=== PATIENT | male | born 1955 | race Hispanic/Latino ===

== ENCOUNTER 2021-03-27 07:54 | Emergency (ER) | payer SELFPAY ==
--- NOTE | 2021-03-27 09:57 | Emergency Department Report ---
ED General Adult HPI - General Chief complaint: High BP Stated complaint: HIGH BLOOD PRESSURE Time Seen by Provider: 03/27/21 09:54 Source: patient Mode of arrival: Ambulatory Limitations: No Limitations - History of Present Illness Initial comments: Patient presented with uncontrolled blood pressure problems as well as left upper quadrant pain. Patient states that he does have a long history of hypertension. He had previously been on lisinopril. He stopped taking it. He started taking it 2 days ago but his blood pressure still elevated. This m orning it was in the 220s over 130 range. He came in for evaluation and treatment. He has no chest pain or shortness of breath. There is no hematuria. He has no blurry vision or double vision. He denies numbness or tingling in the arms or legs. He does not eat salt. He has not been drinking much caffeine. He was concerned about his blood pressure being elevated. He also reports having left upper quadrant pain and he does not know what is going on. This been going on since October. He states it could have even been going on before that. He had been seen [facility] and was told his blood work was normal. They did x-rays and did not see anything. Patient did not know what was going on. He states that he had run some things on the computer and was concerned about pancreas problems or tumor or something else. He does admit that he has been under a lot of stress and it could be related to an ulcer. Is never been diagnosed with ulcer disease. - Related Data Previous Rx's Medication Instructions Recorded Last Taken Type Sucralfate [Carafate] 1 gm PO Q6HR #90 tablet 03/27/21 Unknown Rx hydrALAZINE [Apresoline TAB] 25 mg PO Q8HR #30 tab 03/27/21 Unknown Rx Allergies Allergy/AdvReac Type Severity Reaction Status Date / Time No Known Allergies Allergy Unverified 03/27/21 09:42 ED Review of Systems ROS: Stated complaint: HIGH BLOOD PRESSURE Other details as noted in HPI Comment: All other systems reviewed and negative Constitutional: denies: fever Eyes: denies: eye pain ENT: denies: throat pain Respiratory: denies: cough Cardiovascular: denies: chest pain Endocrine: denies: unexplained weight loss Gastrointestinal: as per HPI Genitourinary: denies: dysuria Musculoskeletal: denies: back pain Skin: denies: rash Neurological: denies: headache Hematological/Lymphatic: denies: easy bruising ED Past Medical Hx - Past Medical History Previous Medical History?: Yes Hx Hypertension: Yes Hx Diabetes: Yes (non compliance) Hx Arthritis: Yes Additional medical history: Abd pain - Surgical History Past Surgical History?: No - Family History Family history: hypertension - Social History Smoking Status: Former Smoker Substance Use Type: Alcohol, Prescribed - Medications Home Medications: Home Medications Medication Instructions Recorded Confirmed Last Taken Type Sucralfate [Carafate] 1 gm PO Q6HR #90 tablet 03/27/21 Unknown Rx hydrALAZINE [Apresoline TAB] 25 mg PO Q8HR #30 tab 03/27/21 Unknown Rx ED Physical Exam - General Limitations: No Limitations, Other (Pulse ox was noted and normal.) General appearance: alert, in no apparent distress, obese - Head Head exam: Present: atraumatic, normocephalic, normal inspection - Eye Eye exam: Present: normal appearance, EOMI. Absent: scleral icterus - ENT ENT exam: Present: normal exam, normal orophraynx, mucous membranes moist, normal external ear exam - Neck Neck exam: Present: normal inspection. Absent: meningismus - Respiratory Respiratory exam: Present: normal lung sounds bilaterally. Absent: respiratory distress - Cardiovascular Cardiovascular Exam: Present: regular rate, normal rhythm - GI/Abdominal GI/Abdominal exam: Present: soft. Absent: distended, tenderness, pulsatile mass - Extremities Exam Extremities exam: Present: normal capillary refill - Back Exam Back exam: Absent: CVA tenderness (R), CVA tenderness (L) - Neurological Exam Neurological exam: Present: alert, oriented X3, normal gait - Psychiatric Psychiatric exam: Present: normal affect, normal mood - Skin Skin exam: Present: warm, dry ED Course Vital Signs 03/27/21 09:42 Temperature 97.7 F Pulse Rate 68 Respiratory 20 Rate Blood Pressure 193/94 O2 Sat by Pulse 97 Oximetry - Reevaluation(s) Reevaluation #1: 03/27/21 09:57 Patient was discharged. ED Medical Decision Making - Medical Decision Making Patient presented with subacute to chronic upper abdominal pain. He certainly has no peritoneal findings. There is no pulsatile mass. I do not believe CT or further imaging is necessary emergently. He certainly may benefit from endoscopy given his questionable history of ulcer disease. There is no vomiting to suggest acute pancreatitis. He has no exertional component. I do not believe this is referred pain from ACS. He did have elevated blood pressure but has no symptomatology of endorgan damage. He was treated symptomatically and referred for outpatient evaluation. Critical care attestation.: If time is entered above; I have spent that time in minutes in the direct care of this critically ill patient, excluding procedure time. ED Disposition Clinical Impression: Uncontrolled hypertension, Chronic LUQ pain Disposition: HOME / SELF CARE / HOMELESS Is pt being admited?: No Does the pt Need Aspirin: No Condition: Stable Instructions: Abdominal Pain, Adult, [id number], Preventing Hypertension, Hypertension (ED) Additional Instructions: Have a bland diet. Drink plenty water. Return for problems. [facility] for [facility]. Continue home medication. Prescriptions: hydrALAZINE [Apresoline TAB] 25 mg PO Q8HR #30 tab Sucralfate [Carafate] 1 gm PO Q6HR #90 tablet Referrals: PRIMARY CARE, [Referring] - 3-5 Days
[2021-03-27 10:32] VITALS: BP 187/101
== END 2021-03-27 10:26 | disposition home or self-care (01) ==
LOC: ED 07:54
DX: I10 Essential (primary) hypertension (principal); G89.29 Other chronic pain; R10.12 Left upper quadrant pain; E11.9 Type 2 diabetes mellitus without complications; M19.90 Unspecified osteoarthritis, unspecified site; Z87.891 Personal history of nicotine dependence; Z79.899 Other long term (current) drug therapy
CPT/HCPCS: 99282

== ENCOUNTER 2021-03-28 15:20 | Emergency (ER) | payer OTHER ==
[2021-03-28 15:47] VITALS: BP 157/81
--- NOTE | 2021-03-28 15:47 | Emergency Department Report ---
ED General Adult HPI - General Chief complaint: High BP Stated complaint: HIGH BLOOD PRESSURE Time Seen by Provider: 03/28/21 15:45 Source: patient Mode of arrival: Ambulatory Limitations: No Limitations - History of Present Illness Initial comments: 65-year-old male patient with history of diabetes and hypertension presents with complaints of continued elevated blood pressure today. Patient was seen here yesterday for elevated blood pressure and left upper quadrant pain. Hydralazine 25 mg was added to his current regimen of lisinopril 20 mg and he was discharged home. Patient states he has taken 1 dose of the hydralazine this morning. He reports his home blood pressure was around 200/140. He denies any headache, dizziness, chest pain, shortness of breath, numbness/tingling/weakness in his limbs, dizziness, difficulty with speech/ambulation. No history of strokes per patient. He states he is otherwise feeling well. Severity scale (0 -10): 0 - Related Data Previous Rx's Medication Instructions Recorded Last Taken Type Sucralfate [Carafate] 1 gm PO Q6HR #90 tablet 03/27/21 Unknown Rx hydrALAZINE [Apresoline TAB] 25 mg PO Q8HR #30 tab 03/27/21 Unknown Rx Allergies Allergy/AdvReac Type Severity Reaction Status Date / Time No Known Allergies Allergy Unverified 03/27/21 09:42 ED Review of Systems ROS: Stated complaint: HIGH BLOOD PRESSURE Other details as noted in HPI Constitutional: denies: diaphoresis, fever, malaise Eyes: denies: vision change Respiratory: denies: cough, shortness of breath Cardiovascular: denies: chest pain Gastrointestinal: denies: abdominal pain, nausea, vomiting Musculoskeletal: denies: back pain Neurological: denies: headache, numbness, paresthesias, confusion, abnormal gait ED Past Medical Hx - Past Medical History Previous Medical History?: Yes Hx Hypertension: Yes Hx Diabetes: Yes (non compliance) Hx Arthritis: Yes Additional medical history: Abd pain , Obesity - Surgical History Past Surgical History?: No - Social History Smoking Status: Never Smoker Substance Use Type: Prescribed - Medications Home Medications: Home Medications Medication Instructions Recorded Confirmed Last Taken Type Sucralfate [Carafate] 1 gm PO Q6HR #90 tablet 03/27/21 Unknown Rx hydrALAZINE [Apresoline TAB] 25 mg PO Q8HR #30 tab 03/27/21 Unknown Rx ED Physical Exam - General Limitations: No Limitations General appearance: alert, in no apparent distress - Head Head exam: Present: atraumatic, normocephalic - Eye Eye exam: Present: normal appearance. Absent: scleral icterus - Neck Neck exam: Present: full ROM - Respiratory Respiratory exam: Present: normal lung sounds bilaterally. Absent: respiratory distress - Cardiovascular Cardiovascular Exam: Present: regular rate, normal rhythm - Neurological Exam Neurological exam: Present: alert, oriented X3, normal gait. Absent: motor sensory deficit - Expanded Neurological Exam Expanded Cerebellar function: Romberg: Normal - Psychiatric Psychiatric exam: Present: normal affect, normal mood - Skin Skin exam: Present: warm, dry, intact, normal color. Absent: rash ED Course Vital Signs 03/28/21 03/28/21 15:34 15:46 Temperature 98.1 F Pulse Rate 76 Respiratory 20 20 Rate Blood Pressure 157/81 Blood Pressure 182/89 [Right] O2 Sat by Pulse 98 Oximetry ED Medical Decision Making - Medical Decision Making 65-year-old male patient with history of diabetes and hypertension presents with complaints of continued elevated blood pressure today. Patient was seen here yesterday for elevated blood pressure and left upper quadrant pain. Hydralazine 25 mg was added to his current regimen of lisinopril 20 mg and he was discharged home. Patient states he has taken 1 dose of the hydralazine this morning. He reports his home blood pressure was around 200/140. He denies any headache, dizziness, chest pain, shortness of breath, numbness/tingling/weakness in his limbs, dizziness, difficulty with speech/ambulation. No history of strokes per patient. He states he is otherwise feeling well. Blood pressure here in ED 193/89 upon arrival and then measured at 157/81 after rest. He continues to deny any symptoms. Patient neurologically intact. Discussed possibility of needing home blood pressure machine calibrated and steps and taking blood pressure at home. Patient states he is to follow-up with his primary care doctor tomorrow via walk-in. He is well-appearing and stable for discharge home. Discussed in great detail signs and symptoms that should prompt immediate return to the emergency department with patient verbalized understanding. Detailed information given about hypertension urgency/emergency and stroke/MT symptoms to patient, he verbalized understanding Critical care attestation.: If time is entered above; I have spent that time in minutes in the direct care of this critically ill patient, excluding procedure time. ED Disposition Clinical Impression: Elevated blood pressure reading Disposition: 01 HOME / SELF CARE / HOMELESS Is pt being admited?: No Condition: Stable Instructions: Managing Your Hypertension Referrals: PRIMARY CARE, [Referring] - 24 Hours
== END 2021-03-28 16:13 | disposition home or self-care (01) ==
LOC: ED 15:20
DX: R03.0 Elevated blood-pressure reading, without diagnosis of hypertension (principal); R10.12 Left upper quadrant pain; I10 Essential (primary) hypertension; E11.9 Type 2 diabetes mellitus without complications; M19.90 Unspecified osteoarthritis, unspecified site; Z79.899 Other long term (current) drug therapy
CPT/HCPCS: 99281

== ENCOUNTER 2021-08-07 12:47 | Emergency (ER) | payer OTHER ==
[2021-08-07 14:15] VITALS: BP 146/80
--- NOTE | 2021-08-07 15:08 | Emergency Department Report ---
ED General Adult HPI - General Chief complaint: High BP Stated complaint: BLOOD PRESSURE Time Seen by Provider: 08/07/21 13:50 Source: patient Mode of arrival: Ambulatory Limitations: No Limitations - History of Present Illness Initial comments: 66-year-old male with a past medical history of hypertension presents emerged department seeking treatment and further evaluation for his high blood pressure. He just saw his primary care provider last month which he was restarted on lisinopril dose taken from 20 once a day to twice a day. 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 Reports no chest pain or palpitations, no fever, chills, sweats, nausea, vomiting, blurry vision, headache, dizziness. Improves with: none Worsens with: none Associated Symptoms: denies other symptoms Treatments Prior to Arrival: none - Related Data Previous Rx's Medication Instructions Recorded Last Taken Type Sucralfate [Carafate] 1 gm PO Q6HR #90 tablet 03/27/21 Unknown Rx hydrALAZINE [Apresoline TAB] 25 mg PO Q8HR #30 tab 03/27/21 Unknown Rx Allergies Allergy/AdvReac Type Severity Reaction Status Date / Time No Known Allergies Allergy Verified 08/07/21 13:19 ED Review of Systems ROS: Stated complaint: BLOOD PRESSURE Other details as noted in HPI Comment: All other systems reviewed and negative ED Past Medical Hx - Past Medical History Hx Hypertension: Yes Hx Diabetes: Yes (non compliance) Hx Arthritis: Yes Additional medical history: Abd pain , Obesity - Social History Smoking Status: Never Smoker Substance Use Type: Prescribed - Medications Home Medications: Home Medications Medication Instructions Recorded Confirmed Last Taken Type Sucralfate [Carafate] 1 gm PO Q6HR #90 tablet 03/27/21 Unknown Rx hydrALAZINE [Apresoline TAB] 25 mg PO Q8HR #30 tab 03/27/21 Unknown Rx ED Physical Exam - General Limitations: No Limitations General appearance: alert, in no apparent distress - Head Head exam: Present: atraumatic, normocephalic - Eye Eye exam: Present: normal appearance, PERRL, EOMI Pupils: Present: normal accommodation - ENT ENT exam: Present: normal exam, mucous membranes moist - Neck Neck exam: Present: normal inspection, full ROM - Respiratory Respiratory exam: Present: normal lung sounds bilaterally. Absent: respiratory distress, wheezes - Cardiovascular Cardiovascular Exam: Present: regular rate, normal rhythm. Absent: systolic murmur, diastolic murmur, rubs, gallop - GI/Abdominal GI/Abdominal exam: Present: soft, normal bowel sounds - Rectal Rectal exam: Present: deferred - Extremities Exam Extremities exam: Present: normal inspection - Back Exam Back exam: Present: normal inspection. Absent: CVA tenderness (R), CVA tenderness (L) - Neurological Exam Neurological exam: Present: alert, oriented X3, CN II-XII intact - Psychiatric Psychiatric exam: Present: normal affect, normal mood - Skin Skin exam: Present: warm, dry, intact, normal color. Absent: rash ED Course Vital Signs 08/07/21 08/07/21 13:23 14:11 Temperature 98.2 F Pulse Rate 91 H 86 Respiratory 20 16 Rate Blood Pressure 178/69 Blood Pressure 146/80 [Left] O2 Sat by Pulse 95 97 Oximetry ED Medical Decision Making - Medical Decision Making Six 6-year-old obese male with hypertension who recently restarted on his blood pressure medications presents emerge department seeking a reevaluation for hypertension. Current blood pressures in the 140s over 80s not suggestive of any changes or alterations to his current blood pressure regimen has been advised to follow-up with his primary care provider and continue the current regimen allow time to reach full efficacy he can return to emergency department should he feel any symptoms suggesting his condition is worsening. Critical care attestation.: If time is entered above; I have spent that time in minutes in the direct care of this critically ill patient, excluding procedure time. ED Disposition Clinical Impression: History of essential hypertension Disposition: HOME / SELF CARE / HOMELESS Is pt being admited?: No Does the pt Need Aspirin: No Condition: Stable Instructions: Hypertension, Adult Additional Instructions: Patient is taking blood pressure medication that was prescribed by your doctor you have only been on several medications for 3 days to allow the medication time to reach full efficacy. Currently you are not hypertensive blood pressures in the 140s over 90s so it appears medication is doing discharge. Blood pressure can also be affected by your diet and also by mood stress anxiety was made [id number] and in the symptoms today Referrals: PRIMARY CARE, [Referring] - 3-5 Days
== END 2021-08-07 16:35 | disposition home or self-care (01) ==
LOC: ED 12:47
DX: I10 Essential (primary) hypertension (principal); E11.9 Type 2 diabetes mellitus without complications; M19.90 Unspecified osteoarthritis, unspecified site; Z79.899 Other long term (current) drug therapy
CPT/HCPCS: 99282